=== PATIENT | male | born 1955 | race Caucasian/White ===

== ENCOUNTER 2020-11-12 22:26 | Emergency (ER) | payer MEDICARE, OTHER ==
[2020-11-12 22:58] LABS: #Monocytes 0.7 10x3/uL (0.0-1.1); #Neutrophils 6.2 10x3/uL (1.5-8.4); %Basophils 0.5 % (0.0-2.0); %Eosinophils 0.3 % (0.0-6.0); %Lymphocytes 7.7 % (18.0-47.0); %Monocytes 8.7 % (0.0-10.0); %Neutrophils 82.4 % (40.0-75.0); Hemoglobin 13.9 g/dL (13.5-17.5); Mean Corpuscular HGB CONC 32.3 g/dL (32.0-36.0); Mean Corpuscular Hemoglobin 27.5 pg (27.0-33.0); Mean Corpuscular Volume 85.3 fl (81.2-95.1); Mean Platelet Volume 12.1 fl (7.4-10.4); Platelet Count 200 10x3/uL (150-450); RBC Distribution Width 13.4 % (11.5-14.5); Red Blood Cell (RBC) Count 5.05 10x6/uL (4.32-5.72); White Blood Cell (WBC) Count 7.5 10x3/uL (3.5-10.5)
[2020-11-12 23:09] LABS: ALT (SGPT) 21 U/L (8-55); AST (SGOT) 15 U/L (5-34); Albumin 3.7 g/dL (3.4-4.8); Alkaline Phosphatase 65 U/L (40-110); Anion Gap 12 mmol/L (10-20); BUN (Urea Nitrogen) 28 mg/dL (8.4-25.7); Bilirubin, Total 0.5 mg/dL (0.2-1.2); Calc. Creatinine Clearance 0 mL/min (70-130); Calcium 8.1 mg/dL (7.8-10.44); Carbon Dioxide 21 mmol/L (23-31); Chloride 106 mmol/L (98-107); Globulin 2.7 g/dL (2.4-3.5); Glucose 111 mg/dL (80-115); Protein, Total 6.4 g/dL (5.8-8.1); Sodium 135 mmol/L (136-145)
[2020-11-12] MEDS ORDERED: Ondansetron PF 4 MG/2 ML Vial ONE (23:26)
== END 2020-11-13 01:37 | disposition home or self-care (01) ==
LOC: CSHERS 22:26
DX: R11.2 Nausea with vomiting, unspecified (principal); R19.7 Diarrhea, unspecified; R10.9 Unspecified abdominal pain; E78.5 Hyperlipidemia, unspecified; I10 Essential (primary) hypertension; J44.9 Chronic obstructive pulmonary disease, unspecified; Z87.891 Personal history of nicotine dependence
CPT/HCPCS: 74177; 80053; 83690; 85025; 87324; 87449; 93005; 96372; 96374; J0500; J2405

== ENCOUNTER 2020-12-02 08:03 | Outpatient (CLI) | payer MEDICARE, MEDICAID | END 2020-12-02 08:04 | disposition home or self-care (01) | LOC: CSHCT 08:03 | PROVIDERS: ATTEND Nurse Practitioner Family | DX: C34.12 Malignant neoplasm of upper lobe, left bronchus or lung (principal); Z90.2 Acquired absence of lung [part of]; M75.102 Unspecified rotator cuff tear or rupture of left shoulder, not specified as traumatic; M67.814 Other specified disorders of tendon, left shoulder; S43.432A Superior glenoid labrum lesion of left shoulder, initial encounter; M75.92 Shoulder lesion, unspecified, left shoulder; M62.512 Muscle wasting and atrophy, not elsewhere classified, left shoulder | CPT/HCPCS: 71260; 82565 ==